=== PATIENT | male | born 1955 | race Caucasian/White ===

== ENCOUNTER 2020-12-14 20:30 | Emergency (ER) | payer OTHER ==
[2020-12-14] MEDS ORDERED: Lidocaine 1% PF 5 ML VIAL ONE (20:53)
== END 2020-12-14 22:13 | disposition home or self-care (01) ==
LOC: ERS 20:30
DX: S61.512A Laceration without foreign body of left wrist, initial encounter (principal); W01.198A Fall on same level from slipping, tripping and stumbling with subsequent striking against other object, initial encounter; Z79.899 Other long term (current) drug therapy; I10 Essential (primary) hypertension; F17.210 Nicotine dependence, cigarettes, uncomplicated
CPT/HCPCS: 12002; 93005

== ENCOUNTER 2022-08-31 17:20 | Inpatient (IN) | payer OTHER ==
[2022-08-31 18:04] LABS: #Basophils 0.1 thou/uL (0.0-0.2); #Eosinphils 0.1 thou/uL (0.0-0.7); #Lymphocytes 1.2 thou/uL (1.20-3.40); #Monocytes 0.1 thou/uL (0.11-0.59); #Neutrophils 2.1 thou/uL (1.40-6.50); %Basophils 2.8 % (0.0-1.0); %Eosinophils 1.7 % (0.0-10.0); %Lymphocytes 33.3 % (21.0-51.0); %Neutrophils 60.2 % (42.0-75.0); Hemoglobin 10.8 g/dL (14.0-18.0); Mean Corpuscular HGB CONC 32.6 g/dL (32.0-36.0); Mean Corpuscular Hemoglobin 32.5 pg (27.0-31.0); Mean Corpuscular Volume 99.5 fL (78.0-98.0); Mean Platelet Volume 8.9 fL (7.4-10.4); Platelet Count 121 thou/uL (130-400); Red Blood Cell (RBC) Count 3.34 mill/uL (4.70-6.10); White Blood Cell (WBC) Count 3.5 thou/uL (4.8-10.8)
[2022-08-31] MEDS ORDERED: Vancomycin 1 GM/200 ML BAG ONE (18:06)
[2022-08-31] MEDS ORDERED: Cefepime 2 GM VIAL ONE (18:06)
[2022-08-31 18:11] LABS: INR-International Normal Ratio 1.2; PTT 35.8 sec (22.9-36.1); Prothrombin Time 15.4 sec (12.0-14.7)
[2022-08-31] MEDS ORDERED: EPINEPHrine 4 MG in Dextrose 5% in Water 250 ML IV SCH (18:15)
[2022-08-31 18:19] LABS: ALT (SGPT) 9 U/L (8-55); AST (SGOT) 26 U/L (5-34); Albumin 3.3 g/dL (3.4-4.8); Alkaline Phosphatase 111 U/L (40-110); Anion Gap 16 mmol/L (10-20); BUN (Urea Nitrogen) 45 mg/dL (8.4-25.7); Bilirubin, Total 0.5 mg/dL (0.2-1.2); Calc. Creatinine Clearance 0 mL/min (70-130); Calcium 9.3 mg/dL (7.8-10.44); Carbon Dioxide 18 mmol/L (23-31); Chloride 100 mmol/L (98-107); Estimated GFR 50; Globulin 3.3 g/dL (2.4-3.5); Glucose 104 mg/dL (80-115); Potassium 3.7 mmol/L (3.5-5.1); Protein, Total 6.6 g/dL (5.8-8.1); Sodium 130 mmol/L (136-145)
[2022-08-31] MEDS ORDERED: Vancomycin 1.5 GRAM/300 ML BAG 1.5 GM in Premix Bag 1 BAG IVPB SCH (18:30)
[2022-08-31 18:59] LABS: Actual Bicarbonate (HCO3v) 17 mEq/L (22-28); Analyzer IN Cardio ER; Base Excess -8.6 mEq/L (-2.0 to +3.0); Calcium, Ionized (venous) 1.03 mmol/L (1.16-1.32); Chloride (VBG) 106 mmol/L (98-106); Hemoglobin (Hb) 10.1 g/dL (12.6-17.4); Potassium (VBG) 3.43 mmol/L (3.70-5.30); pH (venous) 7.29 (7.32-7.43)
[2022-08-31 19:14] LABS: Bilirubin Negative (Negative); Blood, Urine Negative (Negative); Clarity Clear (Clear); Glucose, Urine (Dipstick) Normal (Negative); Ketone, Urine Negative (Negative); Leukocyte Negative Leu/uL (Negative); Nitrite Negative (Negative); Protein, Urine (Dipstick) 20 mg/dL (Neg-Trace); Specific Gravity, Urine 1.012 (1.002-1.036); Urobilinogen Normal mg/dL (Less than 2); pH, Urine 6.5 (5.0-9.0)
[2022-08-31] MEDS ORDERED: Atropine Sulfate 1 mg/10 ml Syringe ONE (20:33)
[2022-08-31] MEDS ORDERED: HYDROcodone/Acetaminophen 5/325 mg Tablet PO PRN (22:18)
[2022-08-31] MEDS ORDERED: Acetaminophen 325 MG TAB PO PRN (22:18)
[2022-08-31] MEDS ORDERED: Bisacodyl 10 MG SUPP PR PRN (22:18)
[2022-08-31 22:25] LABS: Troponin I Less than 0.010 ng/mL (< 0.028)
[2022-08-31] MEDS ORDERED: LORazepam 2 MG/ML SYRINGE IVP PRN (22:27)
[2022-08-31] MEDS ORDERED: Vancomycin HCl 1 GM in Sodium Chloride 0.9% 250 ML 300 ML IVPB SCH (22:30)
[2022-08-31 23:07] VITALS: BMI 28.3
[2022-08-31 23:24] LABS: #Basophils 0.1 thou/uL (0.0-0.2); #Lymphocytes 1.2 thou/uL (1.20-3.40); #Monocytes 0.1 thou/uL (0.11-0.59); #Neutrophils 3.8 thou/uL (1.40-6.50); %Basophils 1.6 % (0.0-1.0); %Eosinophils 0.8 % (0.0-10.0); %Lymphocytes 22.8 % (21.0-51.0); %Monocytes 2.4 % (0.0-10.0); %Neutrophils 72.4 % (42.0-75.0); Mean Corpuscular HGB CONC 33.6 g/dL (32.0-36.0); Mean Corpuscular Hemoglobin 33.4 pg (27.0-31.0); Mean Corpuscular Volume 99.5 fL (78.0-98.0); Mean Platelet Volume 8.3 fL (7.4-10.4); Platelet Count 105 thou/uL (130-400); RBC Distribution Width 14.1 % (11.5-14.5); Red Blood Cell (RBC) Count 2.69 mill/uL (4.70-6.10); White Blood Cell (WBC) Count 5.2 thou/uL (4.8-10.8)
[2022-08-31 23:39] LABS: Creatinine, Urine 44.04 mg/dL (63-166)
[2022-08-31 23:45] LABS: Magnesium 1.4 mg/dL (1.6-2.6); Phosphorus 2.9 mg/dL (2.3-4.7); Uric Acid 8.3 mg/dL (3.5-7.2)
[2022-08-31 23:54] LABS: MDiff Complete? YES; Macrocytosis SLIGHT = 6-15 cells (100X) (0-5/hpf); Ovalocytes SLIGHT = 2-5 cells (100X) (0-1/hpf); Platelet Morphology Comment Appears Decreased
[2022-09-01] MEDS ORDERED: Lorazepam 1 MG TAB PO PRN
[2022-09-01] MEDS: D5 0.9% NS w/ 20 mEq KCl 1,000 ML IV SCH ×3 (00:25→19:44)
[2022-09-01] MEDS ORDERED: Vancomycin 1 GM in Premix Bag 1 BAG IVPB SCH (00:30)
[2022-09-01 01:20] LABS: Troponin I 0.029 ng/mL (< 0.028)
[2022-09-01] MEDS: Cefepime 2 GM in Sodium Chloride 0.9% 100 ML IVPB SCH ×2 (05:38→18:36)
[2022-09-01 05:52] LABS: ALT (SGPT) 7 U/L (8-55); AST (SGOT) 16 U/L (5-34); Albumin 2.8 g/dL (3.4-4.8); Alkaline Phosphatase 84 U/L (40-110); Anion Gap 10 mmol/L (10-20); BUN (Urea Nitrogen) 37 mg/dL (8.4-25.7); Bilirubin, Total 0.4 mg/dL (0.2-1.2); Calc. Creatinine Clearance 62 mL/min (70-130); Carbon Dioxide 17 mmol/L (23-31); Chloride 108 mmol/L (98-107); Estimated GFR 57; Globulin 2.7 g/dL (2.4-3.5); Glucose 183 mg/dL (80-115); Potassium 3.5 mmol/L (3.5-5.1); Protein, Total 5.5 g/dL (5.8-8.1); Sodium 131 mmol/L (136-145)
[2022-09-01 06:13] LABS: Hemoglobin 8.9 g/dL (14.0-18.0); Mean Corpuscular HGB CONC 32.1 g/dL (32.0-36.0); Mean Corpuscular Hemoglobin 32.2 pg (27.0-31.0); Mean Platelet Volume 8.5 fL (7.4-10.4); Platelet Count 153 thou/uL (130-400); RBC Distribution Width 14.1 % (11.5-14.5); Red Blood Cell (RBC) Count 2.77 mill/uL (4.70-6.10); White Blood Cell (WBC) Count 8.1 thou/uL (4.8-10.8)
[2022-09-01 08:09] LABS: Band 5 % (5-11); Eosinophils 2 % (0-10); Lymphocytes 16 % (21-51); MDiff Complete? YES; Metamyelocyte 1 % (0-0); Monocytes 5 % (0-10); Neutrophil 71 % (42-75); Platelet Morphology Comment Appears Adequate; Polychromasia SLIGHT = 2-3 cells (100X) (0-2/hpf)
[2022-09-01] MEDS ORDERED: Enoxaparin Sodium 30 MG/0.3 ML SYRINGE SC SCH (09:00)
[2022-09-01] MEDS: Famotidine 20 MG TAB PO SCH ×2 (09:13→20:33)
[2022-09-01] MEDS ORDERED: [UNRECOGNIZED DRUG - REMARK] IVPB PRN (10:47)
[2022-09-01] MEDS ORDERED: Magnesium Sulfate In Water 4 GM in Premix Bag 1 BAG IVPB SCH (11:00)
[2022-09-01] MEDS ORDERED: Lorazepam 2 MG/ML VIAL IM SCH (11:15)
[2022-09-01] MEDS ORDERED: Ondansetron ODT 4 MG TAB PO PRN (11:15)
[2022-09-01] MEDS: Lorazepam 1 MG TAB PO SCH ×4 (12:12→23:05)
[2022-09-01] MEDS: Thiamine HCl 200 MG/2 ML VIAL SLOW IVP SCH (12:13)
[2022-09-01] MEDS: DOBUTamine 500 mg/250 ml 500 MG in Premix Bag 1 BAG IVPB SCH (12:59)
[2022-09-02] MEDS: Vancomycin 1.5 GRAM/300 ML BAG 1.5 GM in Premix Bag 1 BAG IVPB SCH (00:14)
[2022-09-02] MEDS: D5 0.9% NS w/ 20 mEq KCl 1,000 ML IV SCH ×2 (05:00→14:10)
[2022-09-02] MEDS: Cefepime 2 GM in Sodium Chloride 0.9% 100 ML IVPB SCH ×2 (05:00→17:50)
[2022-09-02] MEDS: Lorazepam 1 MG TAB PO SCH ×3 (05:01→17:50)
[2022-09-02 08:28] LABS: Magnesium 2.2 mg/dL (1.6-2.6)
[2022-09-02] MEDS ORDERED: Electrolyte Replacement Protocol FS PRN (08:30)
[2022-09-02] MEDS: Enoxaparin Sodium 40 MG/0.4 ML SYRINGE SC SCH (08:34)
[2022-09-02] MEDS: DOBUTamine 500 mg/250 ml 500 MG in Premix Bag 1 BAG IVPB SCH (08:34)
[2022-09-02] MEDS: Multivit, Therapeutic 1 TAB PO SCH (08:35)
[2022-09-02] MEDS: Famotidine 20 MG TAB PO SCH ×2 (08:35→21:36)
[2022-09-02] MEDS: Folic Acid 1 MG TAB PO SCH (08:35)
[2022-09-02] MEDS ORDERED: Potassium Chloride 20 MEQ TAB PO SCH (09:15)
[2022-09-02] MEDS: Thiamine HCl 200 MG/2 ML VIAL SLOW IVP SCH (10:03)
[2022-09-02 11:08] LABS: Anion Gap 10 mmol/L (10-20); BUN (Urea Nitrogen) 17 mg/dL (8.4-25.7); Calc. Creatinine Clearance 84 mL/min (70-130); Calcium 7.9 mg/dL (7.8-10.44); Carbon Dioxide 15 mmol/L (23-31); Chloride 114 mmol/L (98-107); Estimated GFR 83; Glucose 97 mg/dL (80-115); Potassium 3.8 mmol/L (3.5-5.1); Sodium 135 mmol/L (136-145)
[2022-09-02] MEDS: Lorazepam 1 MG TAB PO PRN ×2 (16:08→21:40)
[2022-09-03] MEDS: Lorazepam 1 MG TAB PO SCH (00:47)
[2022-09-03] MEDS: D5 0.9% NS w/ 20 mEq KCl 1,000 ML IV SCH (01:11)
[2022-09-03 01:15] LABS: Vancomycin, Trough 18.5 ug/mL
[2022-09-03] MEDS: Vancomycin 1.5 GRAM/300 ML BAG 1.5 GM in Premix Bag 1 BAG IVPB SCH (02:21)
[2022-09-03 04:20] LABS: Chloride 117 mmol/L (98-107); Potassium 4.3 mmol/L (3.5-5.1); Sodium 133 mmol/L (136-145)
[2022-09-03 04:21] LABS: Calcium 7.7 mg/dL (7.8-10.44); Glucose 99 mg/dL (80-115)
[2022-09-03 04:23] LABS: Carbon Dioxide 10 mmol/L (23-31)
[2022-09-03 04:24] LABS: Calc. Creatinine Clearance 112 mL/min (70-130); Estimated GFR 100
[2022-09-03 04:25] LABS: BUN (Urea Nitrogen) 9 mg/dL (8.4-25.7)
[2022-09-03 04:30] LABS: Anion Gap 12 mmol/L (10-20)
[2022-09-03 04:56] LABS: Band 1 % (5-11); Eosinophils 2 % (0-10); Hemoglobin 8.9 g/dL (14.0-18.0); Lymphocytes 12 % (21-51); MDiff Complete? YES; Macrocytosis SLIGHT = 6-15 cells (100X) (0-5/hpf); Mean Corpuscular HGB CONC 34.1 g/dL (32.0-36.0); Mean Corpuscular Hemoglobin 34.7 pg (27.0-31.0); Mean Platelet Volume 7.9 fL (7.4-10.4); Monocytes 7 % (0-10); Neutrophil 78 % (42-75); Ovalocytes SLIGHT = 2-5 cells (100X) (0-1/hpf); Platelet Count 77 thou/uL (130-400); Platelet Morphology Comment Appears Decreased; RBC Distribution Width 13.9 % (11.5-14.5); Red Blood Cell (RBC) Count 2.56 mill/uL (4.70-6.10); Tear Drops SLIGHT = 2-5 cells (100X) (0-1/hpf); White Blood Cell (WBC) Count 2.8 thou/uL (4.8-10.8)
[2022-09-03] MEDS: Cefepime 2 GM in Sodium Chloride 0.9% 100 ML IVPB SCH ×2 (06:45→17:28)
[2022-09-03] MEDS: Lorazepam 0.5 MG TAB PO SCH ×4 (06:46→12:27)
[2022-09-03] MEDS: Famotidine 20 MG TAB PO SCH ×2 (10:00→21:16)
[2022-09-03] MEDS ORDERED: Sodium Bicarbonate 150 MEQ in Dextrose 5% in Water 1,000 ML IV SCH (10:00)
[2022-09-03] MEDS: Folic Acid 1 MG TAB PO SCH (10:00)
[2022-09-03] MEDS: Multivit, Therapeutic 1 TAB PO SCH (10:00)
[2022-09-03] MEDS ORDERED: Lorazepam 1 MG TAB PO PRN (11:15)
[2022-09-03] MEDS: Vancomycin 1 GM in Premix Bag 1 BAG IVPB SCH (12:36)
[2022-09-04] MEDS: Vancomycin 1 GM in Premix Bag 1 BAG IVPB SCH (00:57)
[2022-09-04 05:19] LABS: #Eosinphils 0.1 thou/uL (0.0-0.7); #Lymphocytes 0.5 thou/uL (1.20-3.40); #Monocytes 0.2 thou/uL (0.11-0.59); #Neutrophils 2.2 thou/uL (1.40-6.50); %Basophils 0.8 % (0.0-1.0); %Eosinophils 2.5 % (0.0-10.0); %Lymphocytes 15.8 % (21.0-51.0); %Neutrophils 72.9 % (42.0-75.0); Hemoglobin 8.4 g/dL (14.0-18.0); Mean Corpuscular HGB CONC 32.5 g/dL (32.0-36.0); Mean Corpuscular Hemoglobin 32.7 pg (27.0-31.0); Mean Platelet Volume 8.9 fL (7.4-10.4); Platelet Count 88 thou/uL (130-400); RBC Distribution Width 13.8 % (11.5-14.5); Red Blood Cell (RBC) Count 2.56 mill/uL (4.70-6.10)
[2022-09-04] MEDS: Cefepime 2 GM in Sodium Chloride 0.9% 100 ML IVPB SCH (05:34)
[2022-09-04] MEDS ORDERED: Lorazepam 0.5 MG TAB PO PRN (06:00)
[2022-09-04 06:02] LABS: Anion Gap 9 mmol/L (10-20); BUN (Urea Nitrogen) 6 mg/dL (8.4-25.7); Calc. Creatinine Clearance 123 mL/min (70-130); Calcium 7.9 mg/dL (7.8-10.44); Carbon Dioxide 20 mmol/L (23-31); Chloride 109 mmol/L (98-107); Estimated GFR 103; Glucose 93 mg/dL (80-115); Potassium 3.8 mmol/L (3.5-5.1); Sodium 134 mmol/L (136-145)
[2022-09-04] MEDS: Folic Acid 1 MG TAB PO SCH (08:16)
[2022-09-04] MEDS: Multivit, Therapeutic 1 TAB PO SCH (08:16)
[2022-09-04] MEDS: Famotidine 20 MG TAB PO SCH ×2 (08:16→20:36)
[2022-09-04] MEDS ORDERED: Thiamine 100 MG TAB PO SCH (09:00)
[2022-09-04 09:40] LABS: INR-International Normal Ratio 1.3; Prothrombin Time 16.6 sec (12.0-14.7)
[2022-09-04 09:41] LABS: PTT 38.6 sec (22.9-36.1)
[2022-09-04] MEDS: Metoprolol Tartrate 25 MG TAB PO SCH (20:36)
[2022-09-05 03:59] LABS: INR-International Normal Ratio 1.3; Prothrombin Time 16.3 sec (12.0-14.7)
[2022-09-05 04:00] LABS: Anion Gap 9 mmol/L (10-20); BUN (Urea Nitrogen) 6 mg/dL (8.4-25.7); Calc. Creatinine Clearance 120 mL/min (70-130); Calcium 8.3 mg/dL (7.8-10.44); Carbon Dioxide 18 mmol/L (23-31); Chloride 110 mmol/L (98-107); Estimated GFR 102; Glucose 88 mg/dL (80-115); PTT 27.7 sec (22.9-36.1); Sodium 133 mmol/L (136-145)
[2022-09-05 04:05] LABS: #Eosinphils 0.1 thou/uL (0.0-0.7); #Lymphocytes 0.7 thou/uL (1.20-3.40); #Monocytes 0.3 thou/uL (0.11-0.59); #Neutrophils 2.4 thou/uL (1.40-6.50); %Basophils 1.2 % (0.0-1.0); %Eosinophils 3.1 % (0.0-10.0); %Lymphocytes 18.9 % (21.0-51.0); %Monocytes 7.4 % (0.0-10.0); %Neutrophils 69.4 % (42.0-75.0); Hemoglobin 9.3 g/dL (14.0-18.0); Mean Corpuscular HGB CONC 33.8 g/dL (32.0-36.0); Mean Corpuscular Hemoglobin 33.6 pg (27.0-31.0); Mean Corpuscular Volume 99.5 fL (78.0-98.0); Mean Platelet Volume 10.2 fL (7.4-10.4); Platelet Count 51 thou/uL (130-400); Red Blood Cell (RBC) Count 2.75 mill/uL (4.70-6.10); White Blood Cell (WBC) Count 3.5 thou/uL (4.8-10.8)
[2022-09-05 04:20] LABS: HBCM Index 0.05 S/CO (0-0.79); HBSAg Index 0.36 S/CO (0-0.99); Hep A IgM AB Non-Reactive (NonReactive); Hep A IgM S/CO 0.17 S/CO (0-0.79); Hep B Surf Ag Non-Reactive S/CO (NonReactive); Hep C IgG Ab Non-Reactive (NonReactive); Hep C Index 0.08 S/CO (0-0.79); Hepatitis B Core IgM Abs Non-Reactive (NonReactive)
[2022-09-05] MEDS: Famotidine 20 MG TAB PO SCH ×2 (09:07→21:33)
[2022-09-05] MEDS: Metoprolol Tartrate 25 MG TAB PO SCH ×2 (09:08→21:33)
[2022-09-05] MEDS: Folic Acid 1 MG TAB PO SCH (09:08)
[2022-09-05] MEDS: Multivit, Therapeutic 1 TAB PO SCH (09:08)
[2022-09-05] MEDS: Sodium Bicarbonate Tab 325 MG TAB PO SCH (21:32)
[2022-09-06 04:44] LABS: #Eosinphils 0.1 thou/uL (0.0-0.7); #Monocytes 0.4 thou/uL (0.11-0.59); #Neutrophils 2.4 thou/uL (1.40-6.50); %Basophils 0.4 % (0.0-1.0); %Eosinophils 2.6 % (0.0-10.0); %Lymphocytes 25.7 % (21.0-51.0); %Monocytes 9.5 % (0.0-10.0); %Neutrophils 61.9 % (42.0-75.0); Hemoglobin 8.7 g/dL (14.0-18.0); Mean Corpuscular HGB CONC 33.1 g/dL (32.0-36.0); Mean Corpuscular Hemoglobin 33.2 pg (27.0-31.0); Mean Platelet Volume 8.5 fL (7.4-10.4); Platelet Count 120 thou/uL (130-400); Red Blood Cell (RBC) Count 2.61 mill/uL (4.70-6.10); White Blood Cell (WBC) Count 3.9 thou/uL (4.8-10.8)
[2022-09-06 04:56] LABS: Anion Gap 9 mmol/L (10-20); BUN (Urea Nitrogen) 7 mg/dL (8.4-25.7); Calc. Creatinine Clearance 113 mL/min (70-130); Calcium 8.3 mg/dL (7.8-10.44); Carbon Dioxide 21 mmol/L (23-31); Chloride 109 mmol/L (98-107); Estimated GFR 100; Glucose 91 mg/dL (80-115); Potassium 3.8 mmol/L (3.5-5.1); Sodium 135 mmol/L (136-145)
[2022-09-06 05:08] LABS: INR-International Normal Ratio 1.4; Prothrombin Time 16.9 sec (12.0-14.7)
[2022-09-06 05:09] LABS: PTT 45.2 sec (22.9-36.1)
[2022-09-06] MEDS: Famotidine 20 MG TAB PO SCH ×2 (09:52→21:29)
[2022-09-06] MEDS: Metoprolol Tartrate 25 MG TAB PO SCH ×2 (09:52→21:29)
[2022-09-06] MEDS: Multivit, Therapeutic 1 TAB PO SCH (09:52)
[2022-09-06] MEDS: Sodium Bicarbonate Tab 325 MG TAB PO SCH ×3 (09:53→21:29)
[2022-09-06] MEDS: Folic Acid 1 MG TAB PO SCH (09:53)
[2022-09-07 04:14] LABS: INR-International Normal Ratio 1.3; Prothrombin Time 16.5 sec (12.0-14.7)
[2022-09-07 04:15] LABS: PTT 42.3 sec (22.9-36.1)
[2022-09-07 04:21] LABS: Anion Gap 12 mmol/L (10-20); BUN (Urea Nitrogen) 7 mg/dL (8.4-25.7); Calc. Creatinine Clearance 118 mL/min (70-130); Calcium 8.2 mg/dL (7.8-10.44); Carbon Dioxide 22 mmol/L (23-31); Chloride 108 mmol/L (98-107); Estimated GFR 98; Glucose 85 mg/dL (80-115); Potassium 3.6 mmol/L (3.5-5.1); Sodium 138 mmol/L (136-145)
[2022-09-07 04:51] LABS: #Eosinphils 0.1 thou/uL (0.0-0.7); #Lymphocytes 1.3 thou/uL (1.20-3.40); #Monocytes 0.5 thou/uL (0.11-0.59); #Neutrophils 1.8 thou/uL (1.40-6.50); %Basophils 0.4 % (0.0-1.0); %Eosinophils 2.9 % (0.0-10.0); %Lymphocytes 34.1 % (21.0-51.0); %Monocytes 13.3 % (0.0-10.0); %Neutrophils 49.3 % (42.0-75.0); Hemoglobin 7.8 g/dL (14.0-18.0); Mean Corpuscular HGB CONC 32.4 g/dL (32.0-36.0); Mean Corpuscular Hemoglobin 32.9 pg (27.0-31.0); Mean Platelet Volume 8.4 fL (7.4-10.4); Platelet Count 115 thou/uL (130-400); RBC Distribution Width 13.8 % (11.5-14.5); Red Blood Cell (RBC) Count 2.38 mill/uL (4.70-6.10); White Blood Cell (WBC) Count 3.7 thou/uL (4.8-10.8)
[2022-09-07] MEDS: Enoxaparin Sodium 40 MG/0.4 ML SYRINGE SC SCH (10:45)
[2022-09-07] MEDS: Metoprolol Tartrate 25 MG TAB PO SCH ×2 (10:46→22:17)
[2022-09-07] MEDS: Famotidine 20 MG TAB PO SCH ×2 (10:46→22:22)
[2022-09-07] MEDS: Folic Acid 1 MG TAB PO SCH (10:47)
[2022-09-07] MEDS: Multivit, Therapeutic 1 TAB PO SCH (10:47)
[2022-09-07] MEDS: Sodium Bicarbonate Tab 325 MG TAB PO SCH ×3 (10:47→22:22)
[2022-09-07] MEDS ORDERED: Magnevist 469MG/ML 20 ML VIAL ONE (12:19)
[2022-09-07] MEDS ORDERED: FLUoxetine HCl 10 MG CAP PO SCH (15:45)
[2022-09-08 04:05] LABS: #Eosinphils 0.1 thou/uL (0.0-0.7); #Monocytes 0.4 thou/uL (0.11-0.59); #Neutrophils 2.1 thou/uL (1.40-6.50); %Basophils 0.5 % (0.0-1.0); %Eosinophils 2.9 % (0.0-10.0); %Lymphocytes 28.3 % (21.0-51.0); %Monocytes 9.9 % (0.0-10.0); %Neutrophils 58.4 % (42.0-75.0); Hemoglobin 7.8 g/dL (14.0-18.0); Mean Corpuscular HGB CONC 31.9 g/dL (32.0-36.0); Mean Corpuscular Hemoglobin 32.3 pg (27.0-31.0); Mean Platelet Volume 8.2 fL (7.4-10.4); Platelet Count 115 thou/uL (130-400); RBC Distribution Width 13.8 % (11.5-14.5); White Blood Cell (WBC) Count 3.6 thou/uL (4.8-10.8)
[2022-09-08 04:12] LABS: INR-International Normal Ratio 1.4; Prothrombin Time 16.9 sec (12.0-14.7)
[2022-09-08 04:13] LABS: PTT 42.5 sec (22.9-36.1)
[2022-09-08 04:20] LABS: Anion Gap 9 mmol/L (10-20); BUN (Urea Nitrogen) 5 mg/dL (8.4-25.7); Calc. Creatinine Clearance 108 mL/min (70-130); Carbon Dioxide 24 mmol/L (23-31); Chloride 109 mmol/L (98-107); Estimated GFR 99; Glucose 91 mg/dL (80-115); Potassium 3.4 mmol/L (3.5-5.1); Sodium 139 mmol/L (136-145)
[2022-09-08] MEDS ORDERED: Potassium Chloride 20 MEQ TAB PO SCH (08:00)
[2022-09-08] MEDS: Famotidine 20 MG TAB PO SCH ×2 (09:33→20:34)
[2022-09-08] MEDS: Sodium Bicarbonate Tab 325 MG TAB PO SCH ×3 (09:33→20:34)
[2022-09-08] MEDS: Multivit, Therapeutic 1 TAB PO SCH (09:33)
[2022-09-08] MEDS: Enoxaparin Sodium 40 MG/0.4 ML SYRINGE SC SCH (09:33)
[2022-09-08] MEDS: Metoprolol Tartrate 25 MG TAB PO SCH ×3 (09:34→20:33)
[2022-09-08] MEDS: Folic Acid 1 MG TAB PO SCH (09:34)
[2022-09-08] MEDS: FLUoxetine HCl 20 MG CAP PO SCH (09:34)
[2022-09-08] MEDS ORDERED: Metoprolol Tartrate 25 MG TAB PO SCH (13:35)
[2022-09-08] MEDS: Polyethylene Glycol 3350 17 GM Packet PO SCH (21:09)
[2022-09-08] MEDS: Senokot S 8.6-50 MG TAB PO SCH (21:09)
[2022-09-09] MEDS: Metoprolol Tartrate 25 MG TAB PO SCH ×4 (03:11→20:53)
[2022-09-09 05:15] LABS: #Eosinphils 0.1 thou/uL (0.0-0.7); #Lymphocytes 1.1 thou/uL (1.20-3.40); #Monocytes 0.4 thou/uL (0.11-0.59); #Neutrophils 2.3 thou/uL (1.40-6.50); %Basophils 0.2 % (0.0-1.0); %Eosinophils 2.9 % (0.0-10.0); %Lymphocytes 27.5 % (21.0-51.0); %Monocytes 9.5 % (0.0-10.0); %Neutrophils 59.9 % (42.0-75.0); Hemoglobin 7.7 g/dL (14.0-18.0); Mean Corpuscular HGB CONC 31.8 g/dL (32.0-36.0); Mean Corpuscular Hemoglobin 32.3 pg (27.0-31.0); Mean Platelet Volume 8.4 fL (7.4-10.4); Platelet Count 125 thou/uL (130-400); RBC Distribution Width 13.9 % (11.5-14.5); Red Blood Cell (RBC) Count 2.39 mill/uL (4.70-6.10); White Blood Cell (WBC) Count 3.9 thou/uL (4.8-10.8)
[2022-09-09 05:41] LABS: Anion Gap 12 mmol/L (10-20); BUN (Urea Nitrogen) 6 mg/dL (8.4-25.7); Calc. Creatinine Clearance 117 mL/min (70-130); Calcium 8.1 mg/dL (7.8-10.44); Carbon Dioxide 22 mmol/L (23-31); Chloride 111 mmol/L (98-107); Estimated GFR 98; Glucose 95 mg/dL (80-115); Potassium 3.7 mmol/L (3.5-5.1); Sodium 141 mmol/L (136-145)
[2022-09-09 05:43] LABS: INR-International Normal Ratio 1.2; Prothrombin Time 15.5 sec (12.0-14.7)
[2022-09-09 05:44] LABS: PTT 40.1 sec (22.9-36.1)
[2022-09-09] MEDS: Famotidine 20 MG TAB PO SCH ×2 (10:12→20:53)
[2022-09-09] MEDS: Sodium Bicarbonate Tab 325 MG TAB PO SCH ×3 (10:12→20:53)
[2022-09-09] MEDS: FLUoxetine HCl 20 MG CAP PO SCH (10:12)
[2022-09-09] MEDS: Senokot S 8.6-50 MG TAB PO SCH ×2 (10:13→20:55)
[2022-09-09] MEDS: Multivit, Therapeutic 1 TAB PO SCH (10:13)
[2022-09-09] MEDS: Folic Acid 1 MG TAB PO SCH (10:13)
[2022-09-09] MEDS: Enoxaparin Sodium 40 MG/0.4 ML SYRINGE SC SCH (10:13)
[2022-09-09] MEDS: Polyethylene Glycol 3350 17 GM Packet PO SCH (20:55)
[2022-09-10] MEDS: Metoprolol Tartrate 25 MG TAB PO SCH ×4 (02:50→21:14)
[2022-09-10 05:05] LABS: #Eosinphils 0.1 thou/uL (0.0-0.7); #Lymphocytes 1.1 thou/uL (1.20-3.40); #Monocytes 0.4 thou/uL (0.11-0.59); #Neutrophils 1.9 thou/uL (1.40-6.50); %Basophils 0.4 % (0.0-1.0); %Eosinophils 2.7 % (0.0-10.0); %Lymphocytes 31.2 % (21.0-51.0); %Monocytes 10.3 % (0.0-10.0); %Neutrophils 55.4 % (42.0-75.0); Hemoglobin 7.3 g/dL (14.0-18.0); Mean Corpuscular Hemoglobin 32.3 pg (27.0-31.0); Mean Platelet Volume 8.5 fL (7.4-10.4); Platelet Count 119 thou/uL (130-400); RBC Distribution Width 13.9 % (11.5-14.5); Red Blood Cell (RBC) Count 2.27 mill/uL (4.70-6.10); White Blood Cell (WBC) Count 3.5 thou/uL (4.8-10.8)
[2022-09-10 05:07] LABS: Anion Gap 10 mmol/L (10-20); BUN (Urea Nitrogen) 6 mg/dL (8.4-25.7); Calc. Creatinine Clearance 109 mL/min (70-130); Calcium 7.8 mg/dL (7.8-10.44); Carbon Dioxide 25 mmol/L (23-31); Chloride 107 mmol/L (98-107); Estimated GFR 96; Glucose 94 mg/dL (80-115); Potassium 3.6 mmol/L (3.5-5.1); Sodium 138 mmol/L (136-145)
[2022-09-10 05:09] LABS: INR-International Normal Ratio 1.2; Prothrombin Time 15.5 sec (12.0-14.7)
[2022-09-10 05:10] LABS: PTT 37.5 sec (22.9-36.1)
[2022-09-10] MEDS ORDERED: Thiamine 100 MG TAB PO SCH (09:00)
[2022-09-10] MEDS: Enoxaparin Sodium 40 MG/0.4 ML SYRINGE SC SCH (09:31)
[2022-09-10] MEDS: Famotidine 20 MG TAB PO SCH ×2 (09:31→21:14)
[2022-09-10] MEDS: Sodium Bicarbonate Tab 325 MG TAB PO SCH ×3 (09:31→21:14)
[2022-09-10] MEDS: FLUoxetine HCl 20 MG CAP PO SCH (09:31)
[2022-09-10] MEDS: Folic Acid 1 MG TAB PO SCH (09:32)
[2022-09-10] MEDS: Multivit, Therapeutic 1 TAB PO SCH (09:32)
[2022-09-10] MEDS: Senokot S 8.6-50 MG TAB PO SCH ×2 (09:32→21:15)
[2022-09-10] MEDS: Polyethylene Glycol 3350 17 GM Packet PO SCH (21:14)
[2022-09-11] MEDS: Metoprolol Tartrate 25 MG TAB PO SCH ×4 (02:24→21:33)
[2022-09-11 04:05] LABS: #Eosinphils 0.1 thou/uL (0.0-0.7); #Lymphocytes 1.4 thou/uL (1.20-3.40); #Monocytes 0.4 thou/uL (0.11-0.59); %Basophils 0.1 % (0.0-1.0); %Eosinophils 2.9 % (0.0-10.0); %Lymphocytes 34.9 % (21.0-51.0); %Monocytes 10.4 % (0.0-10.0); %Neutrophils 51.7 % (42.0-75.0); Hemoglobin 7.3 g/dL (14.0-18.0); Mean Corpuscular HGB CONC 31.9 g/dL (32.0-36.0); Mean Corpuscular Hemoglobin 32.1 pg (27.0-31.0); Mean Platelet Volume 8.4 fL (7.4-10.4); Platelet Count 122 thou/uL (130-400); RBC Distribution Width 13.8 % (11.5-14.5); Red Blood Cell (RBC) Count 2.28 mill/uL (4.70-6.10); White Blood Cell (WBC) Count 3.9 thou/uL (4.8-10.8)
[2022-09-11 04:20] LABS: Anion Gap 12 mmol/L (10-20); BUN (Urea Nitrogen) 5 mg/dL (8.4-25.7); Calc. Creatinine Clearance 114 mL/min (70-130); Calcium 7.7 mg/dL (7.8-10.44); Carbon Dioxide 24 mmol/L (23-31); Chloride 105 mmol/L (98-107); Estimated GFR 97; Glucose 86 mg/dL (80-115); Potassium 3.7 mmol/L (3.5-5.1); Sodium 137 mmol/L (136-145)
[2022-09-11] MEDS: FLUoxetine HCl 20 MG CAP PO SCH (09:38)
[2022-09-11] MEDS: Famotidine 20 MG TAB PO SCH ×2 (09:39→21:32)
[2022-09-11] MEDS: Multivit, Therapeutic 1 TAB PO SCH (09:39)
[2022-09-11] MEDS: Sodium Bicarbonate Tab 325 MG TAB PO SCH ×3 (09:39→21:32)
[2022-09-11] MEDS: Senokot S 8.6-50 MG TAB PO SCH ×2 (09:39→21:33)
[2022-09-11] MEDS: Thiamine 100 MG TAB PO SCH ×3 (09:39→21:32)
[2022-09-11] MEDS: Enoxaparin Sodium 40 MG/0.4 ML SYRINGE SC SCH (09:40)
[2022-09-11] MEDS: Folic Acid 1 MG TAB PO SCH (09:40)
[2022-09-11] MEDS ORDERED: Escitalopram Oxalate 10 mg Tablet PO SCH (10:45)
[2022-09-11] MEDS: Polyethylene Glycol 3350 17 GM Packet PO SCH (21:33)
[2022-09-12] MEDS: Metoprolol Tartrate 25 MG TAB PO SCH ×3 (03:54→14:09)
[2022-09-12] MEDS: FLUoxetine HCl 20 MG CAP PO SCH (08:40)
[2022-09-12] MEDS: Famotidine 20 MG TAB PO SCH (08:41)
[2022-09-12] MEDS: Folic Acid 1 MG TAB PO SCH (08:41)
[2022-09-12] MEDS: Thiamine 100 MG TAB PO SCH ×2 (08:41→14:09)
[2022-09-12] MEDS: Multivit, Therapeutic 1 TAB PO SCH (08:41)
[2022-09-12] MEDS: Senokot S 8.6-50 MG TAB PO SCH (08:41)
[2022-09-12] MEDS: Enoxaparin Sodium 40 MG/0.4 ML SYRINGE SC SCH (08:41)
[2022-09-12] MEDS: Sodium Bicarbonate Tab 325 MG TAB PO SCH ×2 (08:41→14:09)
[2022-09-12] MEDS ORDERED: Escitalopram Oxalate 10 mg Tablet PO SCH (09:00)
[2022-09-12 17:42] VITALS: BP 129/62; TEMP 99.1
== END 2022-09-12 19:45 | DRG 871 ==
LOC: ERS 17:20 → CCU 21:04 → IMCU/EMU 09-02 14:52 → 2NO 09-05 11:02
PROVIDERS: ADMIT Internal Medicine; ATTEND Internal Medicine
PROC: 3E033XZ Introduction of Vasopressor into Peripheral Vein, Percutaneous Approach (ICD-10-PCS; principal; 2022-08-31)
PROC: 3E03329 Introduction of Other Anti-infective into Peripheral Vein, Percutaneous Approach (ICD-10-PCS; 2022-08-31)
PROC: 05HY33Z Insertion of Infusion Device into Upper Vein, Percutaneous Approach (ICD-10-PCS; 2022-08-31)
DX: A41.9 Sepsis, unspecified organism (principal); G93.41 Metabolic encephalopathy; R57.0 Cardiogenic shock; N17.0 Acute kidney failure with tubular necrosis; E87.20 Acidosis, unspecified; E87.1 Hypo-osmolality and hyponatremia; F10.231 Alcohol dependence with withdrawal delirium; I47.1 Supraventricular tachycardia; R65.20 Severe sepsis without septic shock; F32.A Depression, unspecified; R00.1 Bradycardia, unspecified; Z66 Do not resuscitate; D64.9 Anemia, unspecified; Z20.822 Contact with and (suspected) exposure to COVID-19; Z79.82 Long term (current) use of aspirin; Z79.899 Other long term (current) drug therapy; E78.5 Hyperlipidemia, unspecified; F17.210 Nicotine dependence, cigarettes, uncomplicated; E86.0 Dehydration; E83.42 Hypomagnesemia; T46.2X5A Adverse effect of other antidysrhythmic drugs, initial encounter; T46.1X5A Adverse effect of calcium-channel blockers, initial encounter; I12.9 Hypertensive chronic kidney disease with stage 1 through stage 4 chronic kidney disease, or unspecified chronic kidney disease; N18.30 Chronic kidney disease, stage 3 unspecified; Z83.6 Family history of other diseases of the respiratory system; Z91.81 History of falling; Z87.440 Personal history of urinary (tract) infections
CPT/HCPCS: 36415; 36416; 36556; 70553; 71045; 74230; 76770; 80048; 80053; 80074; 80202; 81003; 82140; 82570; 82805; 83605; 83735; 84100; 84300; 84443; 84484; 84550; 85025; 85610; 85730; 87040; 87086; 87811; 93005; 93010; 96365; 96366; 96367; 96375; 96376; A9579; J0171; J0461; J0692; J1250; J1650; J3370; J3411; J3475; J3480; J3490; J7070; U0003; U0005

== ENCOUNTER 2022-11-18 09:31 | Observation (INO) | payer OTHER ==
[2022-11-18 10:51] LABS: #Basophils 0.1 thou/uL (0.0-0.2); #Eosinphils 0.1 thou/uL (0.0-0.7); #Monocytes 0.9 thou/uL (0.11-0.59); #Neutrophils 9.7 thou/uL (1.40-6.50); %Basophils 0.4 % (0.0-1.0); %Eosinophils 0.7 % (0.0-10.0); %Lymphocytes 15.5 % (21.0-51.0); %Monocytes 6.9 % (0.0-10.0); %Neutrophils 76.5 % (42.0-75.0); Hemoglobin 13.9 g/dL (14.0-18.0); Mean Corpuscular Hemoglobin 32.1 pg (27.0-31.0); Mean Corpuscular Volume 97.2 fl (78.0-98.0); Mean Platelet Volume 7.2 fL (7.4-10.4); Platelet Count 200 10x3/uL (130-400); RBC Distribution Width 13.5 % (11.5-14.5); Red Blood Cell (RBC) Count 4.35 mill/uL (4.70-6.10); White Blood Cell (WBC) Count 12.7 10x3/uL (4.8-10.8)
[2022-11-18 11:06] LABS: INR-International Normal Ratio 1.1; PTT 32.5 sec (22.9-36.1); Prothrombin Time 14.5 sec (12.0-14.7)
[2022-11-18] MEDS ORDERED: Ondansetron ODT 4 MG TAB PO PRN (11:07)
[2022-11-18] MEDS ORDERED: Dextrose 50% Abboject 50 ML SYRINGE SLOW IVP PRN (11:07)
[2022-11-18] MEDS ORDERED: Dextrose 5% in Water 1,000 ML IV PRN (11:07)
[2022-11-18] MEDS ORDERED: Ondansetron PF 4 MG/2 ML Vial IVP PRN (11:07)
[2022-11-18 11:11] LABS: ALT (SGPT) 41 U/L (8-55); AST (SGOT) 44 U/L (5-34); Albumin 4.6 g/dL (3.4-4.8); Alkaline Phosphatase 110 U/L (40-110); Anion Gap 21 mmol/L (10-20); BUN (Urea Nitrogen) 14 mg/dL (8.4-25.7); Bilirubin, Total 0.8 mg/dL (0.2-1.2); Calc. Creatinine Clearance 0 mL/min (70-130); Calcium 9.5 mg/dL (7.8-10.44); Carbon Dioxide 18 mmol/L (23-31); Chloride 103 mmol/L (98-107); Estimated GFR 95; Globulin 2.8 g/dL (2.4-3.5); Glucose 93 mg/dL (80-115); Potassium 4.6 mmol/L (3.5-5.1); Protein, Total 7.4 g/dL (5.8-8.1); Sodium 137 mmol/L (136-145)
[2022-11-18] MEDS ORDERED: Rib Fracture Protocol PO PRN (11:15)
[2022-11-18] MEDS ORDERED: Morphine 4 MG/ML VIAL ONE (11:50)
[2022-11-18] MEDS ORDERED: TETANUS, DIPHTHERIA TOX,ADULT (TDVAX) 0.5 ML VIAL IM ONE (12:00)
[2022-11-18] MEDS ORDERED: traMADol HCl 50 MG TAB ONE (13:07)
[2022-11-18] MEDS: traMADol HCl 50 MG TAB PO SCH ×3 (13:08→23:00)
[2022-11-18] MEDS ORDERED: Boostrix 0.5 ML (Tdap) VIAL (>/=7 yrs of age) ONE (13:10)
[2022-11-18] MEDS ORDERED: Acetaminophen 500 MG TAB ONE (13:10)
[2022-11-18] MEDS: Acetaminophen 500 MG TAB PO SCH ×3 (13:14→23:00)
[2022-11-18 14:45] VITALS: BMI 32.5
[2022-11-18] MEDS: Ibuprofen 200 MG TAB PO SCH ×2 (15:57→23:00)
[2022-11-18] MEDS: Gabapentin 300 MG CAP PO SCH ×2 (15:57→20:27)
[2022-11-18] MEDS: Oxazepam 10 MG CAP PO SCH (20:26)
[2022-11-18] MEDS: Carvedilol 25 MG TAB PO SCH (20:26)
[2022-11-18] MEDS: Cyclobenzaprine 10 MG TAB PO PRN (20:26)
[2022-11-18] MEDS: guaiFENesin 200 MG TAB PO PRN (20:26)
[2022-11-18] MEDS: Famotidine 20 MG TAB PO SCH (20:28)
[2022-11-18] MEDS ORDERED: Flecainide 50 MG TAB PO SCH (21:00)
[2022-11-19] MEDS: traMADol HCl 50 MG TAB PO SCH ×2 (05:24→12:32)
[2022-11-19] MEDS: Acetaminophen 500 MG TAB PO SCH ×2 (05:25→12:33)
[2022-11-19] MEDS: Ibuprofen 200 MG TAB PO SCH (05:26)
[2022-11-19] MEDS: guaiFENesin 200 MG TAB PO PRN ×3 (05:41→21:25)
[2022-11-19] MEDS ORDERED: Ketorolac Tromethamine 30 MG/ML VIAL IVP SCH (08:45)
[2022-11-19] MEDS: Famotidine 20 MG TAB PO SCH ×2 (10:05→21:10)
[2022-11-19] MEDS: Amlodipine 5 MG TAB PO SCH (10:05)
[2022-11-19] MEDS: Atorvastatin Calcium 20 MG TAB PO SCH (10:06)
[2022-11-19] MEDS: Folic Acid 1 MG TAB PO SCH (10:06)
[2022-11-19] MEDS: Gabapentin 300 MG CAP PO SCH ×3 (10:06→21:10)
[2022-11-19] MEDS: Carvedilol 25 MG TAB PO SCH ×2 (10:06→21:09)
[2022-11-19] MEDS: Oxazepam 10 MG CAP PO SCH ×2 (10:17→21:10)
[2022-11-19] MEDS ORDERED: traMADol HCl 50 MG TAB PO PRN (12:48)
[2022-11-19] MEDS ORDERED: Acetaminophen/Codeine 30-300mg Tablet PO SCH (14:00)
[2022-11-19] MEDS: Ketorolac Tromethamine 30 MG/ML VIAL IVP SCH ×2 (14:52→18:37)
[2022-11-19] MEDS: Acetaminophen/Codeine 30-300mg Tablet PO SCH (17:16)
[2022-11-19] MEDS: Cyclobenzaprine 10 MG TAB PO PRN (21:10)
[2022-11-20] MEDS: Acetaminophen/Codeine 30-300mg Tablet PO SCH ×3 (00:36→11:42)
[2022-11-20] MEDS: Ketorolac Tromethamine 30 MG/ML VIAL IVP SCH ×3 (00:37→11:43)
[2022-11-20] MEDS: guaiFENesin 200 MG TAB PO PRN (05:31)
[2022-11-20] MEDS ORDERED: Enoxaparin Sodium 40 MG/0.4 ML SYRINGE SC SCH (09:00)
[2022-11-20] MEDS ORDERED: Thiamine 100 MG TAB PO SCH (09:00)
[2022-11-20] MEDS: Folic Acid 1 MG TAB PO SCH (09:06)
[2022-11-20] MEDS: Gabapentin 300 MG CAP PO SCH (09:06)
[2022-11-20] MEDS: Famotidine 20 MG TAB PO SCH (09:06)
[2022-11-20] MEDS: Atorvastatin Calcium 20 MG TAB PO SCH (09:06)
[2022-11-20] MEDS: Carvedilol 25 MG TAB PO SCH (09:06)
[2022-11-20] MEDS: Oxazepam 10 MG CAP PO SCH (09:06)
[2022-11-20] MEDS: Amlodipine 5 MG TAB PO SCH (09:06)
[2022-11-20 12:32] VITALS: BP 144/79; TEMP 98.1
== END 2022-11-20 12:08 | disposition home or self-care (01) ==
LOC: ERS 09:31 → SJJU 11:21 → ERHOLD 11:21 → SJJU 13:51
PROVIDERS: ADMIT Surgery; ATTEND Surgery
DX: S27.0XXA Traumatic pneumothorax, initial encounter (principal); S22.41XA Multiple fractures of ribs, right side, initial encounter for closed fracture; T79.7XXA Traumatic subcutaneous emphysema, initial encounter; G89.11 Acute pain due to trauma; F17.210 Nicotine dependence, cigarettes, uncomplicated; I10 Essential (primary) hypertension; I47.1 Supraventricular tachycardia; G62.9 Polyneuropathy, unspecified; F10.20 Alcohol dependence, uncomplicated; Z79.82 Long term (current) use of aspirin; Z79.899 Other long term (current) drug therapy; W01.198A Fall on same level from slipping, tripping and stumbling with subsequent striking against other object, initial encounter
CPT/HCPCS: 36415; 71045; 71046; 80053; 84484; 85025; 85610; 85730; 90714; 90715; 93005; 94640; 96374; 96375; 96376; G0378; J1885; J2270; J7620

== ENCOUNTER 2022-12-24 08:51 | Day surgery (SDC) | payer OTHER ==
[2022-12-24] MEDS ORDERED: Lidocaine 1% PF 5 ML VIAL ONE (11:23)
[2022-12-24] MEDS ORDERED: PROPOFOL 200 MG/20 ML VIAL ONE (11:23)
[2022-12-24 12:39] LABS: #Eosinphils 0.2 thou/uL (0.0-0.7); #Lymphocytes 1.4 thou/uL (1.20-3.40); #Monocytes 0.7 thou/uL (0.11-0.59); #Neutrophils 3.4 thou/uL (1.40-6.50); %Basophils 0.7 % (0.0-1.0); %Eosinophils 2.7 % (0.0-10.0); %Monocytes 11.7 % (0.0-10.0); Hemoglobin 12.9 g/dL (14.0-18.0); Mean Corpuscular HGB CONC 32.7 g/dL (32.0-36.0); Mean Corpuscular Hemoglobin 31.1 pg (27.0-31.0); Mean Corpuscular Volume 94.9 fl (78.0-98.0); Platelet Count 120 10x3/uL (130-400); RBC Distribution Width 14.8 % (11.5-14.5); Red Blood Cell (RBC) Count 4.14 mill/uL (4.70-6.10); White Blood Cell (WBC) Count 5.6 10x3/uL (4.8-10.8)
== END 2022-12-24 12:41 | disposition home or self-care (01) ==
LOC: SDC 08:51
PROVIDERS: ATTEND Internal Medicine Gastroenterology
PROC: 0DBP8ZX Excision of Rectum, Via Natural or Artificial Opening Endoscopic, Diagnostic (ICD-10-PCS; principal; 2022-12-24)
PROC: 0DB98ZX Excision of Duodenum, Via Natural or Artificial Opening Endoscopic, Diagnostic (ICD-10-PCS; 2022-12-24)
PROC: 0DB58ZX Excision of Esophagus, Via Natural or Artificial Opening Endoscopic, Diagnostic (ICD-10-PCS; 2022-12-24)
DX: K62.1 Rectal polyp (principal); K20.90 Esophagitis, unspecified without bleeding; K57.30 Diverticulosis of large intestine without perforation or abscess without bleeding; K64.8 Other hemorrhoids; K44.9 Diaphragmatic hernia without obstruction or gangrene; D64.9 Anemia, unspecified; K59.00 Constipation, unspecified; Z86.010 Personal history of colon polyps; Z87.19 Personal history of other diseases of the digestive system; Z80.0 Family history of malignant neoplasm of digestive organs
CPT/HCPCS: 36415; 82728; 85025; 88305; J2704

== ENCOUNTER 2023-01-01 08:32 | Outpatient (CLI) | payer OTHER | END 2023-01-01 08:33 | disposition home or self-care (01) | LOC: ULT 08:32 | PROVIDERS: ATTEND Physician Assistant Medical | DX: K70.0 Alcoholic fatty liver (principal); D64.9 Anemia, unspecified; K59.00 Constipation, unspecified; K76.0 Fatty (change of) liver, not elsewhere classified; R16.0 Hepatomegaly, not elsewhere classified; K76.89 Other specified diseases of liver | CPT/HCPCS: 76705 ==

== ENCOUNTER → 2023-02-04 | Day surgery (SDC) | payer OTHER ==
[2023-02-03 07:18] VITALS: BMI 31.1
[2023-02-04 07:58] LABS: #Lymphocytes 0.9 thou/uL (1.20-3.40); #Monocytes 0.4 thou/uL (0.11-0.59); #Neutrophils 2.7 thou/uL (1.40-6.50); %Basophils 0.4 % (0.0-1.0); %Eosinophils 0.8 % (0.0-10.0); %Lymphocytes 22.1 % (21.0-51.0); %Monocytes 10.2 % (0.0-10.0); %Neutrophils 66.4 % (42.0-75.0); Hemoglobin 9.3 g/dL (14.0-18.0); Mean Corpuscular HGB CONC 34.1 g/dL (32.0-36.0); Mean Corpuscular Hemoglobin 31.9 pg (27.0-31.0); Mean Corpuscular Volume 93.6 fl (78.0-98.0); Mean Platelet Volume 8.2 fL (7.4-10.4); Platelet Count 181 10x3/uL (130-400); RBC Distribution Width 15.5 % (11.5-14.5); Red Blood Cell (RBC) Count 2.91 mill/uL (4.70-6.10)
[2023-02-04 08:08] LABS: INR-International Normal Ratio 1.1; PTT 23.8 sec (22.9-36.1); Prothrombin Time 14.3 sec (12.0-14.7)
== END | disposition home or self-care (01) ==
LOC: ULT 07:40
PROVIDERS: ATTEND Internal Medicine Gastroenterology
DX: K75.81 Nonalcoholic steatohepatitis (NASH) (principal); R79.89 Other specified abnormal findings of blood chemistry; F10.21 Alcohol dependence, in remission; Z53.09 Procedure and treatment not carried out because of other contraindication
CPT/HCPCS: 85025; 85610; 85730

== ENCOUNTER 2023-02-12 07:47 | Day surgery (SDC) | payer OTHER ==
[2023-02-12] MEDS ORDERED: Lidocaine 1% PF 5 ML VIAL ONE (08:30)
[2023-02-12] MEDS ORDERED: Sodium Bicarbonate 2.5 MEQ/5 ML VIAL ONE (08:30)
[2023-02-12] MEDS ORDERED: Fentanyl 100 MCG/2 ML VIAL ONE (08:30)
[2023-02-12] MEDS ORDERED: Midazolam HCl 2 mg/2 ml Vial ONE (08:30)
[2023-02-12 08:41] VITALS: BP 144/83; TEMP 97.9
== END 2023-02-12 12:24 | disposition home or self-care (01) ==
LOC: ULT 07:47
PROVIDERS: ATTEND Internal Medicine Gastroenterology
PROC: 0FB23ZX Excision of Left Lobe Liver, Percutaneous Approach, Diagnostic (ICD-10-PCS; principal; 2023-02-12)
DX: K75.81 Nonalcoholic steatohepatitis (NASH) (principal); K74.01 Hepatic fibrosis, early fibrosis; K75.9 Inflammatory liver disease, unspecified; F10.10 Alcohol abuse, uncomplicated; F17.200 Nicotine dependence, unspecified, uncomplicated; I10 Essential (primary) hypertension
CPT/HCPCS: 47000; 76942; 88307; 88313; J2250; J3010

== ENCOUNTER 2023-03-25 08:27 | Outpatient (CLI) | payer OTHER | END 2023-03-25 08:28 | disposition home or self-care (01) | LOC: BICMRI 08:27 | PROVIDERS: ATTEND Neurological Surgery | DX: M51.16 Intervertebral disc disorders with radiculopathy, lumbar region (principal); Q76.49 Other congenital malformations of spine, not associated with scoliosis; M51.37 Other intervertebral disc degeneration, lumbosacral region | CPT/HCPCS: 72148 ==